=== PATIENT | male | born 1955 | race Hispanic/Latino ===

== ENCOUNTER → 2024-02-08 | Outpatient (CLI) | payer OTHER | END | disposition home or self-care (01) | LOC: RAH 08:50 | PROVIDERS: ATTEND Family Medicine | DX: S43.421A Sprain of right rotator cuff capsule, initial encounter (principal); S46.091A Other injury of muscle(s) and tendon(s) of the rotator cuff of right shoulder, initial encounter; M25.411 Effusion, right shoulder; X58.XXXA Exposure to other specified factors, initial encounter; Y93.89 Activity, other specified; Y92.89 Other specified places as the place of occurrence of the external cause; Y99.8 Other external cause status | CPT/HCPCS: 73221 ==